=== PATIENT | female | born 1935 | race Two or more races ===

== ENCOUNTER 2019-05-18 13:59 | Inpatient (IN) | payer MEDICAID ==
[~2019-05-18] VITALS: Ht 167.6 cm; Wt 80.7 kg
[2019-05-18] MEDS ORDERED: SODIUM CHLORIDE 0.9% 500 ML IV ONE (14:17)
[2019-05-18] MEDS ORDERED: SODIUM CHLORIDE 0.9% 1,000 ML IV ONE (15:45)
[2019-05-18] MEDS ORDERED: PANTOPRAZOLE 80 MG in SODIUM CHLORIDE 0.9% 100 ML IV SCH (16:00)
[2019-05-18] MEDS ORDERED: PANTOPRAZOLE SODIUM 40 MG/VIAL IV ONE (16:00)
[2019-05-18] MEDS: PANTOPRAZOLE 80 MG in SODIUM CHLORIDE 0.9% 100 ML IV SCH ×2 (16:25→19:24)
[2019-05-18 16:40] LABS: BASOPHILS % 0.5 % (0.0-2.0); EOSINOPHILS % 0.2 % (0.0-5.0); LYMPHOCYTES % 25.9 % (20.0-50.0); MEAN CORPUSCULAR HEMOGLOBIN 29.9 pg (28.0-32.0); MEAN CORPUSCULAR VOLUME 90.1 fL (81.0-99.0); MEAN PLATELET VOLUME 9.3 fl (7.4-10.4); MONOCYTES % 4.5 % (2.0-8.0); NEUTROPHILS % 68.9 % (40.0-76.0); PLATELET 202 x1000/uL (130-400); RED BLOOD CELL COUNT 1.63 mill/uL (4.2-5.4); RED CELL DISTRIBUTION WIDTH 16.4 % (11.6-14.6)
[2019-05-18 16:43] LABS: CHLORIDE 116 mEq/L (98-107); INR 1.2; PROTHROMBIN TIME 11.9 sec (9.6-11.0)
[2019-05-18 16:50] LABS: HEMATOCRIT. 14.7 % (36.0-48.0); HEMOGLOBIN. 4.9 g/dL (12.0-16.0)
[2019-05-18 16:57] LABS: CLARITY URINE CLOUDY (CLEAR); COLOR URINE YELLOW (YELLOW); KETONES URINE NEGATIVE (NEGATIVE); LEUKOCYTE ESTERASE URINE 3+ (NEGATIVE); NITRITE URINE NEGATIVE (NEGATIVE); OCCULT BLOOD URINE NEGATIVE (NEGATIVE); PROTEIN URINE 1+ (NEGATIVE); SPECIFIC GRAVITY URINE 1.013 (1.005-1.030); UROBILINOGEN URINE 0.2 E.U./dL (0.2-1.0)
[2019-05-18] MEDS ORDERED: CEFTRIAXONE 1 G PREMIX 50 ML IV NR (17:30)
[2019-05-18] MEDS ORDERED: IPRATROPIUM/ALBUTEROL 0.5-3(2.5)MG/3ML NEB NEB PRN (18:30)
[2019-05-18] MEDS ORDERED: MAGNESIUM/ALUMINUM HYDROXIDE/SIMETHICONE 30ML UDC PO PRN (18:30)
[2019-05-18] MEDS ORDERED: NOREPINEPHRINE 4MG/250ML PMX 250 ML IV ONE (18:30)
[2019-05-18] MEDS ORDERED: NA PHOS,M-B/NA PHOS,DI-BA ENEMA 118ML PR PRN (18:30)
[2019-05-18] MEDS ORDERED: ONDANSETRON HCL 4MG/2ML INJ IV PRN (18:30)
[2019-05-18] MEDS ORDERED: GUAIFENESIN 200MG/10ML SUGAR FREE UDC PO PRN (18:30)
[2019-05-18] MEDS: MEROPENEM 1,000 MG in SODIUM CHLORIDE 0.9% 100 ML IV SCH (18:30)
[2019-05-18] MEDS ORDERED: CLONIDINE 0.1MG TABLET PO PRN (18:30)
[2019-05-18] MEDS ORDERED: ZOLPIDEM TARTRATE 5MG TABLET PO PRN (18:30)
[2019-05-18] MEDS ORDERED: DOCUSATE SODIUM 100MG CAPSULE PO PRN (18:30)
[2019-05-18] MEDS ORDERED: ACETAMINOPHEN 325MG TABLET PO PRN (18:30)
[2019-05-18] MEDS ORDERED: DEXTROSE 50% WATER 50ML SYRINGE IV PRN (18:30)
[2019-05-18 19:53] LABS: T4 FREE 1.18 ng/dL (0.76-1.46)
[2019-05-18] MEDS: BLOOD SUGAR DIAGNOSTIC STRIP TEST SCH (21:00)
[2019-05-18] MEDS ORDERED: INSULIN LISPRO 100 UNITS/ML SUBCUT NR (23:30)
[2019-05-19] MEDS: DEXT 5%/LACTATED RINGERS 1,000 ML IV SCH ×3 (00:02→20:49)
[2019-05-19] MEDS: PANTOPRAZOLE 80 MG in SODIUM CHLORIDE 0.9% 100 ML IV SCH ×2 (02:15→13:00)
[2019-05-19] MEDS: MEROPENEM 1,000 MG in SODIUM CHLORIDE 0.9% 100 ML IV SCH ×3 (02:30→21:57)
[2019-05-19 05:17] LABS: HEMATOCRIT. 24.4 % (36.0-48.0); HEMOGLOBIN. 8.2 g/dL (12.0-16.0); MEAN CORPUSCULAR HEMOGLOBIN 28.7 pg (28.0-32.0); MEAN CORPUSCULAR VOLUME 85.5 fL (81.0-99.0); MEAN PLATELET VOLUME 9.2 fl (7.4-10.4); PLATELET 177 x1000/uL (130-400); RED BLOOD CELL COUNT 2.85 mill/uL (4.2-5.4); RED CELL DISTRIBUTION WIDTH 17.5 % (11.6-14.6)
[2019-05-19 06:53] LABS: PLATELET ESTIMATE NORMAL
[2019-05-19] MEDS: INSULIN LISPRO 100 UNITS/ML SUBCUT SCH ×3 (08:20→21:00)
[2019-05-19] MEDS: BLOOD SUGAR DIAGNOSTIC STRIP TEST SCH ×5 (09:00→21:57)
[2019-05-19] MEDS ORDERED: MEROPENEM 1000MG in NORMAL SALINE 100ML IV SCH (09:30)
[2019-05-19] MEDS ORDERED: VANCOMYCIN 1500MG in DEXTROSE 5% WATER 250ML IV SCH (10:00)
[2019-05-19] MEDS ORDERED: PANTOPRAZOLE 80 MG in SODIUM CHLORIDE 0.9% 100 ML IV SCH (12:00)
[2019-05-19 14:55] LABS: BASOPHILS % 0.4 % (0.0-2.0); EOSINOPHILS % 1.6 % (0.0-5.0); HEMATOCRIT. 23.5 % (36.0-48.0); LYMPHOCYTES % 30.9 % (20.0-50.0); MEAN CORPUSCULAR HEMOGLOBIN 28.6 pg (28.0-32.0); MEAN CORPUSCULAR VOLUME 83.6 fL (81.0-99.0); MEAN PLATELET VOLUME 7.9 fl (7.4-10.4); MONOCYTES % 8.2 % (2.0-8.0); NEUTROPHILS % 58.9 % (40.0-76.0); PLATELET 155 x1000/uL (130-400); RED BLOOD CELL COUNT 2.81 mill/uL (4.2-5.4); RED CELL DISTRIBUTION WIDTH 18.7 % (11.6-14.6)
[2019-05-19] MEDS ORDERED: MIDAZOLAM HCL 5 MG/5 ML VIAL ONE (15:54)
[2019-05-19] MEDS ORDERED: FENTANYL CITRATE/PF 50MCG/ML 2ML VIAL ONE (15:54)
[2019-05-19] MEDS ORDERED: SIMETHICONE 40 MG/0.6 ML 30ML ONE (15:55)
[2019-05-19] MEDS ORDERED: MIDAZOLAM HCL 5 MG/5 ML VIAL IV PRN (16:01)
[2019-05-19 18:15] VITALS: BP 135/70
[2019-05-19 18:39] VITALS: BP 135/70
[2019-05-19 20:00] VITALS: BP 136/57
[2019-05-19] MEDS: PANTOPRAZOLE SODIUM 40 MG/VIAL IV SCH (21:57)
[2019-05-19] MEDS ORDERED: VANCOMYCIN 1 G PREMIX 200 ML IV NR (22:00)
[2019-05-20] VITALS: BP 135/62
[2019-05-20 04:00] VITALS: BP 156/62
[2019-05-20 06:39] LABS: BASOPHILS % 0.5 % (0.0-2.0); EOSINOPHILS % 3.2 % (0.0-5.0); HEMOGLOBIN. 8.1 g/dL (12.0-16.0); LYMPHOCYTES % 31.2 % (20.0-50.0); MEAN CORPUSCULAR HEMOGLOBIN 28.4 pg (28.0-32.0); MEAN CORPUSCULAR VOLUME 84.2 fL (81.0-99.0); MEAN PLATELET VOLUME 8.5 fl (7.4-10.4); MONOCYTES % 6.3 % (2.0-8.0); NEUTROPHILS % 58.8 % (40.0-76.0); PLATELET 177 x1000/uL (130-400); RED BLOOD CELL COUNT 2.85 mill/uL (4.2-5.4); RED CELL DISTRIBUTION WIDTH 19.2 % (11.6-14.6)
[2019-05-20] MEDS: BLOOD SUGAR DIAGNOSTIC STRIP TEST SCH ×4 (06:50→21:42)
[2019-05-20 07:05] LABS: CHLORIDE 119 mEq/L (98-107)
[2019-05-20] MEDS: INSULIN LISPRO 100 UNITS/ML SUBCUT SCH ×5 (07:50→21:58)
[2019-05-20 08:00] VITALS: BP 136/67
[2019-05-20] MEDS: MEROPENEM 1,000 MG in SODIUM CHLORIDE 0.9% 100 ML IV SCH (09:00)
[2019-05-20] MEDS ORDERED: VANCOMYCIN 750 MG PREMIX 150 ML IV SCH (10:00)
[2019-05-20] MEDS: PANTOPRAZOLE SODIUM 40 MG/VIAL IV SCH ×2 (10:17→21:42)
[2019-05-20] MEDS: DEXT 5%/LACTATED RINGERS 1,000 ML IV SCH (10:18)
[2019-05-20 12:00] VITALS: BP 158/43
[2019-05-20 17:06] VITALS: BP 133/47
[2019-05-20] MEDS ORDERED: VANCOMYCIN 1 G PREMIX 200 ML IV SCH (18:00)
[2019-05-20 20:00] VITALS: BP 148/61
[2019-05-20] MEDS: MEROPENEM 1000MG in NORMAL SALINE 100ML IV SCH (21:42)
[2019-05-21] VITALS: BP 172/68
[2019-05-21 04:00] VITALS: BP 152/62
[2019-05-21] MEDS: DEXT 5%/LACTATED RINGERS 1,000 ML IV SCH (05:09)
[2019-05-21] MEDS: BLOOD SUGAR DIAGNOSTIC STRIP TEST SCH ×2 (06:32→12:20)
[2019-05-21 06:39] LABS: CHLORIDE 118 mEq/L (98-107)
[2019-05-21] MEDS: INSULIN LISPRO 100 UNITS/ML SUBCUT SCH ×2 (07:50→13:29)
[2019-05-21 08:00] VITALS: BP 132/50
[2019-05-21] MEDS: PANTOPRAZOLE SODIUM 40 MG/VIAL IV SCH (08:38)
[2019-05-21] MEDS: MEROPENEM 1000MG in NORMAL SALINE 100ML IV SCH (08:39)
[2019-05-21] MEDS ORDERED: POTASSIUM CHLORIDE 20MEQ TABLET SR PO NR (11:15)
[2019-05-21 11:36] VITALS: BP 134/56
[2019-05-21 12:00] VITALS: BP 158/44
[2019-05-21] MEDS ORDERED: VANCOMYCIN 750 MG PREMIX 150 ML IV SCH (20:00)
== END 2019-05-21 15:44 | disposition home or self-care (01) | DRG 720 ==
LOC: ER 13:59 → 7WST 17:47 → EDBD 17:47 → EDBEDREQSVC 17:50 → EDBEDREQTM 17:50 → EDBEDREQ 17:50 → EDBEDREQSVC 05-19 09:36 → ENRESERV 05-19 11:02 → 6WST 05-19 17:59
PROVIDERS: ADMIT Internal Medicine; ATTEND Internal Medicine
PROC: 30233N1 Transfusion of Nonautologous Red Blood Cells into Peripheral Vein, Percutaneous Approach (ICD-10-PCS; 2019-05-18)
PROC: 0DB78ZX Excision of Stomach, Pylorus, Via Natural or Artificial Opening Endoscopic, Diagnostic (ICD-10-PCS; principal; 2019-05-19)
DX: A41.9 Sepsis, unspecified organism (principal); E43 Unspecified severe protein-calorie malnutrition; G92 Toxic encephalopathy; K26.4 Chronic or unspecified duodenal ulcer with hemorrhage; K29.61 Other gastritis with bleeding; E11.22 Type 2 diabetes mellitus with diabetic chronic kidney disease; E11.65 Type 2 diabetes mellitus with hyperglycemia; E83.51 Hypocalcemia; D50.0 Iron deficiency anemia secondary to blood loss (chronic); I12.9 Hypertensive chronic kidney disease with stage 1 through stage 4 chronic kidney disease, or unspecified chronic kidney disease; K44.9 Diaphragmatic hernia without obstruction or gangrene; N39.0 Urinary tract infection, site not specified; N18.9 Chronic kidney disease, unspecified; Z79.4 Long term (current) use of insulin; Z68.28 Body mass index [BMI] 28.0-28.9, adult
CPT/HCPCS: 36415; 71045; 80048; 80053; 80061; 80202; 81003; 82607; 82746; 82962; 83036; 83540; 83550; 83605; 84439; 84443; 84484; 85025; 86850; 86900; 86920; 87070; 88305; 88312; 88313; 93005; 93970; 99291; C9113; J0696; J1815; J2185; J2250; J3010; J3370; J7030; J7050; J7060; P9016